=== PATIENT | female | born 1955 | race Two or more races ===

== ENCOUNTER 2018-10-21 09:40 | Emergency (ER) | payer SELFPAY ==
[~2018-10-21] VITALS: Ht 157.5 cm; Wt 81.6 kg
[2018-10-21 09:59] VITALS: BP 156/65
== END 2018-10-21 10:43 | disposition home or self-care (01) ==
LOC: ER 09:42
DX: E11.65 Type 2 diabetes mellitus with hyperglycemia (principal); I10 Essential (primary) hypertension

== ENCOUNTER 2024-12-15 11:25 | Inpatient (IN) | payer OTHER ==
[~2024-12-15] VITALS: Ht 157.5 cm; Wt 82.9 kg
--- NOTE | 2024-12-15 12:09 | ED.PDOC ---
General HPI Comments 69 y/o F, with PMHx of HTN, DM, and HLD presents to the ED for CC of flank pain. Patient states, she has been experiencing left-sided flank pain that radiates to her suprapubic abdominal area x3days. At this time patient c/o 6/10 pain to her flank and pelvic areas. Patient denies fever, chills, dysuria, hematuria, frequency, urgency, or inability to void. No other symptoms or modifying factors are present at this time. Chief Complaint: Flank Pain Time Seen by MD: 12:00 Primary Care Provider: UNKNOWN Reviewed notes: Nurses Notes, Medications, Allergies Allergies: Coded Allergies: NO KNOWN ALLERGIES (Unverified , 12/15/24) Information Source: Patient Mode of Arrival: Ambulatory Severity: Moderate Inability to void: None Timing: Days Duration: Since onset Prehospital treatment: None Onset: Spontaneous Symptoms: None History of: None Location: (L)Flank Modifying factors: None associated signs and symptoms: Abdominal Pain, Flank Pain Past Medical History PAST MEDICAL HISTORY: DM, High Lipids, HTN Surgical History: Denies all surgeries HOSPICE NURSE History: Denies all HOSPICE NURSE Hx Family History Family History: Family hx of DM Social History Smoker: Non-Smoker Alcohol: Denies ETOH Use Drugs: Denies Drug Use Lives In: Home Constitutional: denies: chills, diaphoresis, fatigue, fever, malaise, sweats, weakness, others EENTM: denies: blurred vision, double vision, ear bleeding, ear discharge, ear drainage, ear pain, ear ringing, eye pain, eye redness, hearing loss, mouth pain, mouth swelling, nasal discharge, nose bleeding, nose congestion, nose pain, photophobia, tearing, throat pain, throat swelling, voice changes, others Respiratory: denies: cough, hemoptysis, orthopnea, SOB at rest, shortness of breath, SOB with excertion, stridor, wheezing, others Cardiovascular: denies: chest pain, dizzy spells, diaphoresis, Dyspnea on exertion, edema, irregular heart beat, left arm pain, lightheadedness, palpitations, PND, syncope, others Gastrointestinal: reports: abdominal pain; denies: abdomen distended, blood streaked bowels, constipated, diarrhea, dysphagia, difficulty swallowing, hematemesis, melena, nausea, poor appetite, poor fluid intake, rectal bleeding, rectal pain, vomiting, others Genitourinary: reports: flank pain; denies: abnormal vagina bleeding, burning, dyspareunia, dysuria, frequency, hematuria, incontinence, pain, , vagina discharge, urgency, others Neurological: denies: dizziness, fainting, headache, left sided numbness, left sided weakness, numbness, paresthesia, pre-existing deficit, right sided numbness, right sided weakness, seizure, speech problems, tingling, tremors, weakness, others Musculoskeletal: denies: back pain, gout, joint pain, joint swelling, muscle pain, muscle stiffness, neck pain, others Integumetry: denies: bruises, change in color, change in hair/nails, dryness, laceration, lesions, lumps, rash, wounds, others Allergic/Immunocompromised: denies: Difficulty Healing, Frequent Infections, Hives, Itching, others Hematologic/Lymphatic: denies: anemia, blood clots, easy bleeding, easy bruising, swollen glands, others Endocrine: denies: excessive hunger, excessive sweating, excessive thirst, excessive urination, flushing, intolerance to cold, intolerance to heat, unexplained weight gain, unexplained weight loss, others Psychiatric: denies: anxiety, bipolar disorder, depression, hopeless, panic disorder, schizophrenia, sleepless, suicidal, others All Other Systems: Reviewed and Negative Physical Exam General Appearance: Moderate Distress HEENT: Normal ENT Inspection, Pharynx Normal, TMs Normal Neck: Full Range of Motion, Non-Tender, Normal, Normal Inspection Respiratory: Chest Non-Tender, Lungs Clear, No Accessory Muscle Use, No Respiratory Distress, Normal Breath Sounds Cardiovascular: No Edema, No JVD, No Murmur, No Gallop, Normal Peripheral Pulses, Regular Rate/Rhythm Breast Exam: Deferred Gastrointestinal: LLQ, No Organomegaly, No Pulsatile Mass, Normal Bowel Sounds, Soft, Tenderness Genitalia: Deferred Pelvic: Deferred Rectal: Deferred Extremities: No calf tenderness, Normal capillary refill, Normal inspection, Normal range of motion, Non-tender, No pedal edema Musculoskeletal : Apperance: Normal Neurologic: Alert, transmissions systems operator II-XII nml as Tested, No Motor Deficits, Normal Affect, Normal Mood, No Sensory Deficits Cerebellar Function: Normal Reflexes: Normal Skin: Dry, Normal Color, Warm Lymphatic: No Adenopathy Was a procedure done? Was a procedure done?: No Differential Diagnosis Kidney stone (Female): Cholelithiasis, Pancreatitis, Pyelonephritis, Strain, Urolithiasis, Other (Diverticulitis) Urinary Problem (Female): Urinary retention, Urolithiasis, UTI X-Ray, Labs, Meds, VS Vital Signs Date Time Temp Pulse Resp B/P (MAP) Pulse Ox O2 Delivery O2 Flow Rate FiO2 12/15/24 11:27 98.2 73 16 133/73 97 98.2 Lab Test 12/15/24 12:59 12/15/24 12:49 Range/Units White Blood Count 7.0 4.4-10.8 10^3/uL Red Blood Count 4.27 4.0-5.20 10^6/uL Hemoglobin 13.0 12.2-16.2 g/dL Hematocrit 37.8 36.0-46.0 % Mean Corpuscular Volume 88.5 80.0-100.0 fL Mean Corpuscular Hemoglobin 30.4 28.0-32.0 pg Mean Corpuscular Hemoglobin Concent 34.4 32.0-36.0 g/dL Red Cell Distribution Width 13.1 11.8-14.3 % Platelet Count 231 140-450 10^3/uL Mean Platelet Volume 8.2 6.9-10.8 fL Neutrophils (%) (Auto) 59.1 37.0-80.0 % Lymphocytes (%) (Auto) 30.3 10.0-50.0 % Monocytes (%) (Auto) 8.1 0.0-12.0 % Eosinophils (%) (Auto) 2.1 0.0-7.0 % Basophils (%) (Auto) 0.4 0.0-2.0 % Neutrophils # (Auto) 4.2 1.6-8.6 10 ^3/uL Lymphocytes # (Auto) 2.1 0.4-5.4 10 ^3/uL Monocytes # (Auto) 0.6 0-1.3 10 ^3/uL Eosinophils # (Auto) 0.1 0-0.8 10 ^3/uL Basophils # (Auto) 0 0-0.2 10 ^3/uL Nucleated Red Blood Cells 0.1 % Sodium Level 145 136-145 mmol/L Potassium Level 4.2 3.5-5.1 mmol/L Chloride Level 109 H 98-107 mmol/L Carbon Dioxide Level 26 20-31 mmol/L Anion Gap 10 5-15 Blood Urea Nitrogen 16 9-23 mg/dL Creatinine 0.68 0.550-1.02 mg/dL Glomerular Filtration Rate Calc 94 >90 mL/min BUN/Creatinine Ratio 23.5 H 10.0-20.0 Serum Glucose 104 74-106 mg/dL Calcium Level 9.4 8.7-10.4 mg/dL Urine Color Light-yellow Yellow Urine Clarity Clear Clear Urine pH 5.0 5.0-9.0 Urine Specific [place] 1.023 1.001-1.035 Urine Protein Negative Negative Urine Ketones Negative Negative Urine Blood Negative Negative /uL Urine Nitrite Negative Negative Urine Bilirubin Negative Negative Urine Urobilinogen Normal Negative mg/dL Urine Leukocyte Esterase Negative Negative /uL Urine RBC 1 0 - 4 /hpf Urine Microscopic WBC 2 0-5 /HPF Urine Squamous Epithelial Cells Few <5 /hpf Urine Bacteria None seen None Seen /hpf Urine Mucus Few None Seen Urine Glucose 3+ H Normal mg/dL Current Medications Medications (Trade) Dose Ordered Sig/Gloria Route Start Time Stop Time Status Last Admin Ondansetron HCl (Zofran) 4 mg ONCE ONCE IV 12/15/24 12:00 12/15/24 12:01 DC 12/15/24 12:25 Sodium Chloride 1,000 ml @ 1,000 mls/hr Q1H ONCE IVB 12/15/24 12:00 12/15/24 12:59 DC 12/15/24 12:25 Ketorolac Tromethamine (Toradol Injection) 15 mg ONCE ONCE IV 12/15/24 12:00 12/15/24 12:01 DC 12/15/24 12:25 CT ABD PEL: IMPRESSION: 1. No hydronephrosis or nephroureterolithiasis. 2. Question low-grade diverticulitis of the distal sigmoid colon along the left pelvic sidewall. 3. Cholelithiasis. 4. Hepatomegaly and diffuse hepatic steatosis. IV Hep-Lock was established The patient was given Zofran 4 mg IV push The patient was given 1 L bolus of normal saline The patient was given ketorolac 15 mg IV push The urine test is negative for infection at this time The CBC and chemistry panel are within normal limits The patient is being admitted The patient is also given Flagyl 500 mg IV piggyback. We are working with a diagnosis of cholelithiasis as well as acute diverticulitis Images Reviewed?: Images reviewed and evaluated by me Time of 1ST Reevaluation: 12:30 Reevaluation 1ST: Unchanged Patient Education/Counseling: Diagnosis, Treatment, Prognosis Family Education/Counseling: No Family Present SEPSIS Sepsis Screen Date sepsis recognized/suspect: Dec 15, 2024 Time Sepsis recognized/suspect: 1126 Recent Procedure: No On Antibiotic Therapy: No Respiratory Rate >20: No Heart Rate >90: No Temp<36 C (96.8 F) or >38.3 C: No SBP <90 or MAP <65 mmHG: No New Acute Mental Status Change: No Is the patient on CPAP, BIPAP,: No Physician Orders Ct Ab Pel Wo Con-No Oral Or Iv (12/15/24 11:49) Heplock Iv (12/15/24 11:49) Vital Signs Date Time Temp Pulse Resp B/P (MAP) Pulse Ox O2 Delivery O2 Flow Rate FiO2 12/15/24 11:27 98.2 73 16 133/73 97 98.2 Laboratory Tests Test 12/15/24 12:59 White Blood Count 7.0 10^3/uL (4.4-10.8) Medications Medications Dose Ordered Sig/Gloria Route Start Time Stop Time Status Last Admin Dose Admin Ketorolac Tromethamine 15 mg ONCE ONCE IV 12/15/24 12:00 12/15/24 12:01 DC 12/15/24 12:25 Ondansetron HCl 4 mg ONCE ONCE IV 12/15/24 12:00 12/15/24 12:01 DC 12/15/24 12:25 Sodium Chloride 1,000 ml @ 1,000 mls/hr Q1H ONCE IVB 12/15/24 12:00 12/15/24 12:59 DC 12/15/24 12:25 Departure 1 Departure Time of Disposition: 14:08 Impression: Primary Impression: Intractable abdominal pain Additional Impressions: Cholelithiasis Qualified Codes: K80.20 - Calculus of gallbladder without cholecystitis without obstruction Acute diverticulitis Disposition: ADMITTED INPATIENT Admit to: Med Surg Condition: Fair Critical Care Note Critical Care Time?: No Stability Stability form required: Yes Unstable for transfer: ED Physician Assesment (Clinical assesment) Heart Score Heart Score: Heart Score Response (Comments) Value History N/A 0 EKG N/A 0 Age N/A 0 Risk Factors N/A 0 Troponin N/A 0 Total 0 I personally scribed for BRAD NY MD ([email or web address]) on 12/15/24 at 12:09. Electronically submitted by Marilynn Isaac ([email or web address]). I personally scribed for BRAD NY MD ([email or web address]) on 12/15/24 at 13:06. Electronically submitted by Marilynn Isaac ([email or web address]). BRAD NY MD Dec 15, 2024 12:09
[2024-12-15] MEDS: SODIUM CHLORIDE 0.9% 1,000 ML IVB ONE (12:25)
[2024-12-15] MEDS: KETOROLAC TROMETH 30 MG/ML 1ML VIAL IV ONE (12:25)
[2024-12-15] MEDS: ONDANSETRON HCL 4 MG/2 ML VIAL IV ONE (12:25)
--- NOTE | 2024-12-15 12:49 | DVH ---
EXAM: CT CT AB PEL WO CON-NO ORAL OR IV INDICATION: left flank pain TECHNIQUE: Volumetric multidetector CT images of the abdomen and pelvis were obtained without contrast. All CT scans at this facility use dose modulation, iterative reconstruction, and/or weight based dosing when appropriate to reduce radiation dose to as low as reasonably achievable. COMPARISON: None FINDINGS: [LOWER CHEST]: The partially visualized lung bases are clear without a pleural effusion. trace small 2-3 mm oval-shaped micronodule in the right middle lobe and inferior lingula and correlate for benign sequelae of prior infection. The cardiac size is normal without pericardial effusion. [LIVER]: Question diffuse hepatic steatosis. Hepatomegaly. [GALLBLADDER AND BILIARY TREE]: Cholelithiasis. [SPLEEN]: Unremarkable. [PANCREAS]: Unremarkable. [ADRENAL GLANDS]: Unremarkable [KIDNEYS]: No hydronephrosis. No nephroureterolithiasis. No suspicious focal lesion. No definitive left distal ureteral stone allowing for limitation. [BLADDER]: Unremarkable for the degree distention. [REPRODUCTIVE ORGANS]: Hysterectomy. [BOWEL/MESENTERY]: Stomach is normal. No CT evidence of bowel obstruction. normal appendix. Mild sigmoid diverticulosis mild descending colonic diverticulosis. Trace possible anti mesenteric margin inflammatory stranding along the distal sigmoid colon along the left pelvic sidewall correlate for low-grade diverticulitis. [ASCITES]: Absent [LYMPHADENOPATHY]: No pathologically enlarged lymph nodes by CT size criteria [VASCULATURE]: No aneurysmal dilatation. [ABDOMINAL WALL]: Unremarkable. [MUSCULOSKELETAL]: No acute fracture or aggressive focal osseous lesion. Multifocal degenerative change of the visualized spine. IMPRESSION: 1. No hydronephrosis or nephroureterolithiasis. 2. Question low-grade diverticulitis of the distal sigmoid colon along the left pelvic sidewall. 3. Cholelithiasis. 4. Hepatomegaly and diffuse hepatic steatosis.
[2024-12-15 13:12] LABS: Hematocrit 37.8 % (36.0-46.0); Hemoglobin 13.0 g/dL (12.2-16.2); Mean Corpuscular Hemoglobin 30.4 pg (28.0-32.0); Mean Corpuscular Volume 88.5 fL (80.0-100.0); Nucleated Red Blood Cells % 0.1 %
[2024-12-15 13:18] LABS: Potassium 4.2 mmol/L (3.5-5.1); Sodium 145 mmol/L (136-145)
[2024-12-15 13:19] LABS: Anion Gap 10 (5-15); Carbon Dioxide 26 mmol/L (20-31)
[2024-12-15 13:20] LABS: Calcium 9.4 mg/dL (8.7-10.4); Chloride 109 mmol/L (98-107)
[2024-12-15 13:24] LABS: BUN/Creatinine Ratio 23.5 (10.0-20.0); Blood Urea Nitrogen 16 mg/dL (9-23); Glucose 104 mg/dL (74-106)
[2024-12-15 13:41] LABS: Urine Protein, UAD Negative (Negative)
[2024-12-15] MEDS ORDERED: LISI20TA56 PO (15:00)
[2024-12-15] MEDS ORDERED: ATEN25TA PO (15:00)
[2024-12-15] MEDS ORDERED: DEXTROSE (50%) 50ML SYRG IV PRN (15:00)
[2024-12-15] MEDS ORDERED: ACETAMINOPHEN 325 MG TAB PO PRN (15:00)
[2024-12-15] MEDS ORDERED: ONDANSETRON HCL 4 MG/2 ML VIAL IV PRN (15:00)
[2024-12-15] MEDS ORDERED: HYDR25TA5 PO (15:00)
[2024-12-15] MEDS ORDERED: ATOR40TA52 PO (15:00)
--- NOTE | 2024-12-15 15:01 | DVHHP2 ---
History of Present Illness Reason for Visit: Flank pain History of Present Illness Estephanie Knox is a 69-year-old female with past medical history of hypertension, diabetes, , and hyperlipidemia who presents to the ED with left flank pain that started 3 days ago, reports that it is a 6/10 "pain" and constant in nature. Patient's daughter Chelita at the bedside. Patient reports that she drank some vitamin water with no relief. She reports that the pain just came about initially started on Thursday then went away and now restarted. Patient denies any chest pain, shortness of breath, fever, chills, lightheadedness, weakness dizziness, nausea, vomiting, diarrhea, urinary symptoms, recent travels, recent ingestion of spoiled food, recent trauma or injury, or recent sick contacts. Cardiovascular: HTN, hyperipidemia Endocrine: Diabetes Past Surgical History: Family History: Hypertension, Other (Mom with hypertension and migraines.) Smoke: No ALCOHOL: none Drugs: None Lives: with Family Domestic Violence: Neg Review of Systems Gastrointestinal: Other (Left flank pain radiating to the abdomen) Allergies: Coded Allergies: NO KNOWN ALLERGIES (Unverified , 12/15/24) Exam Vital Signs Vital Signs Date Time Temp Pulse Resp B/P (MAP) Pulse Ox O2 Delivery O2 Flow Rate FiO2 12/15/24 11:27 98.2 73 16 133/73 97 98.2 General Appearance: Alert, Oriented X3, Cooperative, No acute distress HEENT: Atraumatic, PERRLA, EOMI, Mucous membr. moist/pink Respiratory: Clear to auscultation, Normal air movement Cardiovascular: Regular rate, Normal S1, Normal S2, No murmurs Abdominal: Normal bowel sounds, Soft Extremities: No clubbing, No cyanosis, No edema, Normal pulses Skin: No significant lesion Neuro: Normal gait, Normal speech, Strength at 5/5 X4 ext, Normal tone, Sensation intact Psych/Mental Status: Mental status NL, Mood NL Labs/Xrays Labs Test 12/15/24 12:59 12/15/24 12:49 Range/Units White Blood Count 7.0 4.4-10.8 10^3/uL Red Blood Count 4.27 4.0-5.20 10^6/uL Hemoglobin 13.0 12.2-16.2 g/dL Hematocrit 37.8 36.0-46.0 % Mean Corpuscular Volume 88.5 80.0-100.0 fL Mean Corpuscular Hemoglobin 30.4 28.0-32.0 pg Mean Corpuscular Hemoglobin Concent 34.4 32.0-36.0 g/dL Red Cell Distribution Width 13.1 11.8-14.3 % Platelet Count 231 140-450 10^3/uL Mean Platelet Volume 8.2 6.9-10.8 fL Neutrophils (%) (Auto) 59.1 37.0-80.0 % Lymphocytes (%) (Auto) 30.3 10.0-50.0 % Monocytes (%) (Auto) 8.1 0.0-12.0 % Eosinophils (%) (Auto) 2.1 0.0-7.0 % Basophils (%) (Auto) 0.4 0.0-2.0 % Neutrophils # (Auto) 4.2 1.6-8.6 10 ^3/uL Lymphocytes # (Auto) 2.1 0.4-5.4 10 ^3/uL Monocytes # (Auto) 0.6 0-1.3 10 ^3/uL Eosinophils # (Auto) 0.1 0-0.8 10 ^3/uL Basophils # (Auto) 0 0-0.2 10 ^3/uL Nucleated Red Blood Cells 0.1 % Sodium Level 145 136-145 mmol/L Potassium Level 4.2 3.5-5.1 mmol/L Chloride Level 109 H 98-107 mmol/L Carbon Dioxide Level 26 20-31 mmol/L Anion Gap 10 5-15 Blood Urea Nitrogen 16 9-23 mg/dL Creatinine 0.68 0.550-1.02 mg/dL Glomerular Filtration Rate Calc 94 >90 mL/min BUN/Creatinine Ratio 23.5 H 10.0-20.0 Serum Glucose 104 74-106 mg/dL Calcium Level 9.4 8.7-10.4 mg/dL Urine Color Light-yellow Yellow Urine Clarity Clear Clear Urine pH 5.0 5.0-9.0 Urine Specific [place] 1.023 1.001-1.035 Urine Protein Negative Negative Urine Ketones Negative Negative Urine Blood Negative Negative /uL Urine Nitrite Negative Negative Urine Bilirubin Negative Negative Urine Urobilinogen Normal Negative mg/dL Urine Leukocyte Esterase Negative Negative /uL Urine RBC 1 0 - 4 /hpf Urine Microscopic WBC 2 0-5 /HPF Urine Squamous Epithelial Cells Few <5 /hpf Urine Bacteria None seen None Seen /hpf Urine Mucus Few None Seen Urine Glucose 3+ H Normal mg/dL EXAM: CT CT AB PEL WO CON-NO ORAL OR IV INDICATION: left flank pain TECHNIQUE: Volumetric multidetector CT images of the abdomen and pelvis were obtained without contrast. All CT scans at this facility use dose modulation, iterative reconstruction, and/or weight based dosing when appropriate to reduce radiation dose to as low as reasonably achievable. COMPARISON: None FINDINGS: [LOWER CHEST]: The partially visualized lung bases are clear without a pleural effusion. trace small 2-3 mm oval-shaped micronodule in the right middle lobe and inferior lingula and correlate for benign sequelae of prior infection. The cardiac size is normal without pericardial effusion. [LIVER]: Question diffuse hepatic steatosis. Hepatomegaly. [GALLBLADDER AND BILIARY TREE]: Cholelithiasis. [SPLEEN]: Unremarkable. [PANCREAS]: Unremarkable. [ADRENAL GLANDS]: Unremarkable [KIDNEYS]: No hydronephrosis. No nephroureterolithiasis. No suspicious focal lesion. No definitive left distal ureteral stone allowing for limitation. [BLADDER]: Unremarkable for the degree distention. [REPRODUCTIVE ORGANS]: Hysterectomy. [BOWEL/MESENTERY]: Stomach is normal. No CT evidence of bowel obstruction. normal appendix. Mild sigmoid diverticulosis mild descending colonic diverticulosis. Trace possible anti mesenteric margin inflammatory stranding along the distal sigmoid colon along the left pelvic sidewall correlate for low- grade diverticulitis. [ASCITES]: Absent [LYMPHADENOPATHY]: No pathologically enlarged lymph nodes by CT size criteria [VASCULATURE]: No aneurysmal dilatation. [ABDOMINAL WALL]: Unremarkable. [MUSCULOSKELETAL]: No acute fracture or aggressive focal osseous lesion. Multifocal degenerative change of the visualized spine. IMPRESSION: 1. No hydronephrosis or nephroureterolithiasis. 2. Question low-grade diverticulitis of the distal sigmoid colon along the left pelvic sidewall. 3. Cholelithiasis. 4. Hepatomegaly and diffuse hepatic steatosis. SEPSIS Sepsis Screen Date sepsis recognized/suspect: Dec 15, 2024 Time Sepsis recognized/suspect: 1127 Recent Procedure: No On Antibiotic Therapy: No Respiratory Rate >20: No Heart Rate >90: No Temp<36 C (96.8 F) or >38.3 C: No SBP <90 or MAP <65 mmHG: No New Acute Mental Status Change: No Is the patient on CPAP, BIPAP,: No Physician Orders Ct Ab Pel Wo Con-No Oral Or Iv (12/15/24 11:49) Heplock Iv (12/15/24 11:49) Metronidazole 500mg/100ml (Flagyl 500mg/ (12/15/24 14:15) Vital Signs Date Time Temp Pulse Resp B/P (MAP) Pulse Ox O2 Delivery O2 Flow Rate FiO2 12/15/24 11:27 98.2 73 16 133/73 97 98.2 Laboratory Tests Test 12/15/24 12:59 White Blood Count 7.0 10^3/uL (4.4-10.8) Medications Medications Dose Ordered Sig/Gloria Route Start Time Stop Time Status Last Admin Dose Admin Ketorolac Tromethamine 15 mg ONCE ONCE IV 12/15/24 12:00 12/15/24 12:01 DC 12/15/24 12:25 15 MG Ondansetron HCl 4 mg ONCE ONCE IV 12/15/24 12:00 12/15/24 12:01 DC 12/15/24 12:25 4 MG Sodium Chloride 1,000 ml @ 1,000 mls/hr Q1H ONCE IVB 12/15/24 12:00 12/15/24 12:59 DC 12/15/24 12:25 1,000 MLS/HR Assessment/Plan Assessment/Plan Assessment Intractable left flank pain radiating to the abdomen ?low-grade diverticulitis of the distal sigmoid colon along the left pelvic sidewall Cholelithiasis Hepatomegaly diffuse hepatic steatosis History of hypertension History of diabetes History of hyperlipidemia History of Plan Admit to med surge Antiemetics Pain management CT abdomen and pelvis UA IV antibiotics-Flagyl Hemoglobin A1c ISS and Accu-Cheks Diet Home medications reconciled DVT prophylaxis-SCDs PUD prophylaxis-PPIs Discussed plan of care with patient, patient's daughter, and nurse [id number] Preventive counseling healthy eating habits, physical activity, and regular checkups Plan discussed with: Patient, Daughter Date of Service: Dec 15, 2024 Billing Provider: CHERISE CHU Common Visit Codes: 66699-[id number] INP/OBS CARE (HIGH) Secondary Visit Codes: 21150-[id number] COUNSELING IND CHERISE CHU Dec 15, 2024 15:01
[2024-12-15 16:47] VITALS: PULSE 65; RESP 16; O2SAT 98
[2024-12-15] MEDS: InsuLIN REG 1unit/0.01ml Soln (100units/ml) SC SCH (17:00)
[2024-12-15] MEDS: ACCU-CHEK COMFORT CURVE STRIP VI SCH (17:13)
[2024-12-15] MEDS ORDERED: METF-370 PO (17:47)
[2024-12-15 17:53] VITALS: BP 139/75; PULSE 65; RESP 16; TEMP 99.3; O2SAT 98
[2024-12-15 20:00] VITALS: PULSE 58; RESP 18; O2SAT 98
[2024-12-15 21:00] VITALS: BP 136/75; PULSE 54; RESP 18; TEMP 97.8; O2SAT 95
[2024-12-15] MEDS: ATORVASTATIN 20 MG TAB PO SCH (22:00)
[2024-12-15] MEDS: HYDROcodone-ACET 5/325MG TAB PO PRN (23:03)
[2024-12-16 05:00] VITALS: BP 107/66; PULSE 59; RESP 18; TEMP 98.3; O2SAT 98
[2024-12-16 05:56] LABS: Hematocrit 36.4 % (36.0-46.0); Hemoglobin 12.5 g/dL (12.2-16.2); Mean Corpuscular Hemoglobin 30.3 pg (28.0-32.0); Mean Corpuscular Volume 87.9 fL (80.0-100.0); Nucleated Red Blood Cells % 0.1 %
[2024-12-16 06:13] LABS: Albumin 3.8 g/dL (3.2-4.8); Alkaline Phosphatase 77 U/L (46-116); Anion Gap 7 (5-15); BUN/Creatinine Ratio 26.1 (10.0-20.0); Bilirubin, Total 0.5 mg/dL (0.2-1.0); Blood Urea Nitrogen 18 mg/dL (9-23); Calcium 9.5 mg/dL (8.7-10.4); Carbon Dioxide 27 mmol/L (20-31); Potassium 3.7 mmol/L (3.5-5.1); Sodium 142 mmol/L (136-145); Total Protein 6.1 g/dL (5.7-8.2)
[2024-12-16 06:27] LABS: Alanine Aminotransferase 46 U/L (7-40); Chloride 108 mmol/L (98-107); Glucose 146 mg/dL (74-106)
[2024-12-16 07:50] VITALS: PULSE 60; RESP 18; O2SAT 99
[2024-12-16 09:00] VITALS: BP 130/58; PULSE 60; RESP 18; TEMP 97.8; O2SAT 99
[2024-12-16] MEDS: hydroCHLOROthiazide 25 MG TAB PO SCH (09:46)
[2024-12-16] MEDS: ATENOLOL 25 MG TAB PO SCH (09:46)
[2024-12-16] MEDS: LISINOPRIL 20 MG TAB PO SCH (09:47)
[2024-12-16] MEDS ORDERED: METR-344 PO (09:55)
[2024-12-16] MEDS ORDERED: CIPR-173 PO (09:55)
--- NOTE | 2024-12-16 09:59 | DVHDS2 ---
Discharge Summary Date of Admission Dec 15, 2024 at 14:57 Date of Discharge: Dec 16, 2024 Labs/Diagnostic Data: Laboratory Results Test 12/16/24 07:59 12/16/24 05:26 12/15/24 12:59 12/15/24 12:49 POC Glucose 177 mg/dl (70-106) White Blood Count 6.9 10^3/uL (4.4-10.8) Red Blood Count 4.14 10^6/uL (4.0-5.20) Hemoglobin 12.5 g/dL (12.2-16.2) Hematocrit 36.4 % (36.0-46.0) Mean Corpuscular Volume 87.9 fL (80.0-100.0) Mean Corpuscular Hemoglobin 30.3 pg (28.0-32.0) Mean Corpuscular Hemoglobin Concent 34.5 g/dL (32.0-36.0) Red Cell Distribution Width 12.9 % (11.8-14.3) Platelet Count 214 10^3/uL (140-450) Mean Platelet Volume 8.2 fL (6.9-10.8) Neutrophils (%) (Auto) 47.0 % (37.0-80.0) Lymphocytes (%) (Auto) 42.7 % (10.0-50.0) Monocytes (%) (Auto) 7.6 % (0.0-12.0) Eosinophils (%) (Auto) 2.2 % (0.0-7.0) Basophils (%) (Auto) 0.5 % (0.0-2.0) Neutrophils # (Auto) 3.2 10 ^3/uL (1.6-8.6) Lymphocytes # (Auto) 2.9 10 ^3/uL (0.4-5.4) Monocytes # (Auto) 0.5 10 ^3/uL (0-1.3) Eosinophils # (Auto) 0.1 10 ^3/uL (0-0.8) Basophils # (Auto) 0 10 ^3/uL (0-0.2) Nucleated Red Blood Cells 0.1 % Sodium Level 142 mmol/L (136-145) Potassium Level 3.7 mmol/L (3.5-5.1) Chloride Level 108 mmol/L (98-107) Carbon Dioxide Level 27 mmol/L (20-31) Anion Gap 7 (5-15) Blood Urea Nitrogen 18 mg/dL (9-23) Creatinine 0.69 mg/dL (0.550-1.02) Glomerular Filtration Rate Calc 93 mL/min (>90) BUN/Creatinine Ratio 26.1 (10.0-20.0) Serum Glucose 146 mg/dL (74-106) Calcium Level 9.5 mg/dL (8.7-10.4) Total Bilirubin 0.5 mg/dL (0.2-1.0) Aspartate Amino Transferase (AST) 15 U/L (13-40) Alanine Aminotransferase (ALT) 46 U/L (7-40) Alkaline Phosphatase 77 U/L (46-116) Total Protein 6.1 g/dL (5.7-8.2) Albumin 3.8 g/dL (3.2-4.8) Hemoglobin A1c 8.3 % A1C (<5.7) Urine Color Light-yellow (Yellow) Urine Clarity Clear (Clear) Urine pH 5.0 (5.0-9.0) Urine Specific [place] 1.023 (1.001-1.035) Urine Protein Negative (Negative) Urine Ketones Negative (Negative) Urine Blood Negative /uL (Negative) Urine Nitrite Negative (Negative) Urine Bilirubin Negative (Negative) Urine Urobilinogen Normal mg/dL (Negative) Urine Leukocyte Esterase Negative /uL (Negative) Urine RBC 1 /hpf (0 - 4) Urine Microscopic WBC 2 /HPF (0-5) Urine Squamous Epithelial Cells Few /hpf (<5) Urine Bacteria None seen /hpf (None Seen) Urine Mucus Few (None Seen) Urine Glucose 3+ mg/dL (Normal) Other Laboratory Tests 12/16/24 05:26 Brief Hx & Hospital Course: Final diagnoses: Acute diverticulitis Cholelithiasis Hepatomegaly diffuse hepatic steatosis HTN DM2 Mixed hyperlipidemia History of 69 year old female was admitted for LLQ abd pain CT showed mild diverticulitis She is feeling better No N/V/D DC home on Cipro and Flagyl x 10 days Condition at Discharge: Stable Final Diagnosis/Problems List Acute diverticulitis Discharge Disposition: Home SNF Discharge Will this Physician continue t: No Discharge Instruct/Medications Diet: Consistent carbohydrate, Cardiac 2g Na,low cholest Activity: No Restrictions, As Tolerated Follow Up/Referral: PCP SKIP Medications: Cipro 500 mg bid x 10 days Flagyl 500 mg tid x 10 days Scheduled Atenolol (Atenolol), 1 TAB PO DAILY, (Reported) Atorvastatin Calcium (Atorvastatin Calcium), 1 TAB PO DAILY, (Reported) Ciprofloxacin Hcl (Cipro), 1 TAB PO BID Hctz (Hydrochlorothiazide), 1 TAB PO DAILY, (Reported) Lisinopril (Lisinopril), 1 TAB PO DAILY, (Reported) Metformin Hydrochloride (Metformin Hcl), 1,000 MG PO BID, (Reported) Metronidazole (Flagyl), 1 TAB PO TID Discharge Statement: "Patient was advised to return to the ER or call 911 if any headaches, dizziness, shortness of breath, chest pain, abdominal pain, bleeding, fevers, or worsening of medical condition. Patient was counseled about treatment plan, medications, possible side effects, patientverbalized understanding. All questions were answered to the best of my ability. This discharge took greater then 30 minutes in planning, reviewing documentation, counseling the patient, and discussing with other team members." ASSESSMENT ASSESSMENT Assessment Acute diverticulitis Date of Service: Dec 16, 2024 Billing Provider: JENNY MUÑOZ MD Common Visit Codes: NOT BILLABLE JENNY MUÑOZ MD Dec 16, 2024 09:59
[2024-12-16 10:42] LABS: Hepatitis B Surface Antigen Negative (Negative)
[2024-12-16 11:06] LABS: Hepatitis C Antibody Negative (Negative)
[2024-12-16 12:08] VITALS: BP 130/58; PULSE 55; RESP 18; TEMP 36.6; O2SAT 96
[2024-12-16 13:00] VITALS: BP 128/70; PULSE 55; RESP 18; TEMP 98.3; O2SAT 96
== END 2024-12-16 12:53 | disposition home or self-care (01) | DRG 392 ==
LOC: ER 11:25 → OVERFLOW 14:57 → EAST 16:31
PROVIDERS: ADMIT Internal Medicine Geriatric Medicine; ATTEND Internal Medicine Geriatric Medicine
DX: K57.32 Diverticulitis of large intestine without perforation or abscess without bleeding (principal); R16.0 Hepatomegaly, not elsewhere classified; K76.0 Fatty (change of) liver, not elsewhere classified; E11.9 Type 2 diabetes mellitus without complications; I10 Essential (primary) hypertension; K80.20 Calculus of gallbladder without cholecystitis without obstruction; E78.2 Mixed hyperlipidemia; Z83.3 Family history of diabetes mellitus; Z82.49 Family history of ischemic heart disease and other diseases of the circulatory system; Z79.899 Other long term (current) drug therapy
CPT/HCPCS: 36415; 74176; 80048; 80053; 81001; 82962; 83036; 85025; 86803; 87340; 96361; 96374; 96375; G0378; J1815; J1885; J2405; J3490

== ENCOUNTER 2024-12-24 16:02 | Inpatient (IN) | payer OTHER ==
[~2024-12-24] VITALS: Ht 157.5 cm; Wt 81.0 kg
[~2024-12-24 16:02] MED LIST: ATEN25TA PO; ATOR40TA52 PO; CIPR-173 PO; HYDR25TA5 PO; LISI20TA56 PO; METF-370 PO; METR-344 PO
[2024-12-24 16:42] LABS: Hematocrit 41.5 % (36.0-46.0); Hemoglobin 14.4 g/dL (12.2-16.2); Mean Corpuscular Hemoglobin 30.4 pg (28.0-32.0); Mean Corpuscular Volume 87.7 fL (80.0-100.0); Nucleated Red Blood Cells % 0.1 %
[2024-12-24 16:55] LABS: Albumin 4.4 g/dL (3.2-4.8); Alkaline Phosphatase 89 U/L (46-116); Anion Gap 12 (5-15); BUN/Creatinine Ratio 22.0 (10.0-20.0); Blood Urea Nitrogen 18 mg/dL (9-23); Carbon Dioxide 28 mmol/L (20-31); Chloride 103 mmol/L (98-107); Lipase 35 U/L (12-53); Potassium 4.1 mmol/L (3.5-5.1); Sodium 143 mmol/L (136-145); Total Protein 6.9 g/dL (5.7-8.2)
[2024-12-24 16:56] LABS: Bilirubin, Total 0.3 mg/dL (0.2-1.0)
[2024-12-24 17:00] LABS: Alanine Aminotransferase 84 U/L (7-40); Calcium 11.1 mg/dL (8.7-10.4); Glucose 112 mg/dL (74-106)
--- NOTE | 2024-12-24 17:46 | ED.PDOC ---
History of Present Illness HPI Comments 69-year-old female who is Georgian-speaking presents to the ER with daughter who translates and reports on the patient having prior medical history of diabetes, high lipids, hypertension in the chief complaint of abdominal pain. Patient reports on having left lower quadrant pain which radiates to the lumbar region of the back and came to the ER last week with similar symptoms and were diagnosed with diverticulitis and sent home with Cipro and Flagy. Daughter notes that the medication is not working and the patient still has pain. Denies any other symptoms at this time. Denies chills, fever, N/V/D, SOB, CP. No other associated symptoms, modifiers, recent injuries or sick contacts present at this time. Chief Complaint: Abdominal Pain Time Seen by MD: 17:10 Primary Care Provider: UNKNOWN Reviewed Notes: Nurses Notes, Medications, Allergies Allergies: Coded Allergies: NO KNOWN ALLERGIES (Unverified , 12/15/24) Home Meds Active Scripts Metronidazole (Flagyl) 500 Mg Tab, 1 TAB PO TID, #30 TAB Prov:JENNY MUÑOZ MD 12/16/24 Ciprofloxacin Hcl (Cipro) 500 Mg Tab, 1 TAB PO BID, #20 TAB Prov:JENNY MUÑOZ MD 12/16/24 Reported Medications Metformin Hydrochloride (Metformin Hcl) 500 Mg Tab, 1000 MG PO BID, MG 12/15/24 Atorvastatin Calcium (ATORVASTATIN CALCIUM) 40 Mg Tab, 1 TAB PO DAILY 12/15/24 Hctz (Hydrochlorothiazide) 25 Mg Tab, 1 TAB PO DAILY 12/15/24 Lisinopril (Lisinopril) 20 Mg Tab, 1 TAB PO DAILY 12/15/24 Atenolol (Atenolol) 25 Mg Tab, 1 TAB PO DAILY 12/15/24 Information Source: Patient, Relative (Child) Mode of Arrival: Ambulatory Severity: Moderate Timing: Days Duration: Since onset, Days Prehospital treatment: None Past Medical History PAST MEDICAL HISTORY: DM, High Lipids, HTN Surgical History: Denies all surgeries 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 Hx Family History Family History: Reviewed,noncontributory to illness, Unknown Social History Smoker: Non-Smoker Alcohol: Denies ETOH Use Drugs: Denies Drug Use Lives In: Home Constitutional: denies: chills, diaphoresis, fatigue, fever, malaise, sweats, weakness, others EENTM: denies: blurred vision, double vision, ear bleeding, ear discharge, ear drainage, ear pain, ear ringing, eye pain, eye redness, hearing loss, mouth pain, mouth swelling, nasal discharge, nose bleeding, nose congestion, nose pain, photophobia, tearing, throat pain, throat swelling, voice changes, others Respiratory: denies: cough, hemoptysis, orthopnea, SOB at rest, shortness of breath, SOB with excertion, stridor, wheezing, others Cardiovascular: denies: chest pain, dizzy spells, diaphoresis, Dyspnea on exertion, edema, irregular heart beat, left arm pain, lightheadedness, palpitations, PND, syncope, others Gastrointestinal: reports: abdominal pain; denies: abdomen distended, blood streaked bowels, constipated, diarrhea, dysphagia, difficulty swallowing, hematemesis, melena, nausea, poor appetite, poor fluid intake, rectal bleeding, rectal pain, vomiting, others Genitourinary: denies: abnormal vagina bleeding, burning, dyspareunia, dysuria, flank pain, frequency, hematuria, incontinence, pain, , vagina discharge, urgency, others Neurological: denies: dizziness, fainting, headache, left sided numbness, left sided weakness, numbness, paresthesia, pre-existing deficit, right sided numbness, right sided weakness, seizure, speech problems, tingling, tremors, weakness, others Musculoskeletal: reports: back pain; denies: gout, joint pain, joint swelling, muscle pain, muscle stiffness, neck pain, others Integumetry: denies: bruises, change in color, change in hair/nails, dryness, laceration, lesions, lumps, rash, wounds, others Allergic/Immunocompromised: denies: Difficulty Healing, Frequent Infections, Hives, Itching, others Hematologic/Lymphatic: denies: anemia, blood clots, easy bleeding, easy bruising, swollen glands, others Endocrine: denies: excessive hunger, excessive sweating, excessive thirst, excessive urination, flushing, intolerance to cold, intolerance to heat, unexplained weight gain, unexplained weight loss, others Psychiatric: denies: anxiety, bipolar disorder, depression, hopeless, panic disorder, schizophrenia, sleepless, suicidal, others All Other Systems: Reviewed and Negative Physical Exam Exam Comments Left lower quadrant pain which radiates to the lumbar region General Appearance: No Apparent Distress, Normal HEENT: Normal ENT Inspection, Pharynx Normal, TMs Normal Neck: Full Range of Motion, Non-Tender, Normal, Normal Inspection Respiratory: Chest Non-Tender, Lungs Clear, No Accessory Muscle Use, No Respiratory Distress, Normal Breath Sounds Cardiovascular: No Edema, No JVD, No Murmur, No Gallop, Normal Peripheral Pulses, Regular Rate/Rhythm Breast Exam: Deferred Gastrointestinal: No Organomegaly, Non Tender, No Pulsatile Mass, Normal Bowel Sounds, Soft Genitalia: Deferred Pelvic: Deferred Rectal: Deferred Extremities: No calf tenderness, Normal capillary refill, Normal inspection, Normal range of motion, Non-tender, No pedal edema Musculoskeletal : Apperance: Normal Neurologic: Alert, 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 Was a procedure done?: No Differential Dx Considerations may include: Ureteral colic, acute appendicitis, viral syndrome, electrolyte abnormality, diverticulitis X-Ray, Labs, Meds, VS Vital Signs Date Time Temp Pulse Resp B/P (MAP) Pulse Ox O2 Delivery O2 Flow Rate FiO2 12/24/24 16:05 97.9 71 20 133/54 99 97.9 Lab Test 12/24/24 16:25 Range/Units White Blood Count 8.4 4.4-10.8 10^3/uL Red Blood Count 4.73 4.0-5.20 10^6/uL Hemoglobin 14.4 12.2-16.2 g/dL Hematocrit 41.5 36.0-46.0 % Mean Corpuscular Volume 87.7 80.0-100.0 fL Mean Corpuscular Hemoglobin 30.4 28.0-32.0 pg Mean Corpuscular Hemoglobin Concent 34.7 32.0-36.0 g/dL Red Cell Distribution Width 13.2 11.8-14.3 % Platelet Count 257 140-450 10^3/uL Mean Platelet Volume 8.5 6.9-10.8 fL Neutrophils (%) (Auto) 53.1 37.0-80.0 % Lymphocytes (%) (Auto) 36.4 10.0-50.0 % Monocytes (%) (Auto) 7.1 0.0-12.0 % Eosinophils (%) (Auto) 2.8 0.0-7.0 % Basophils (%) (Auto) 0.6 0.0-2.0 % Neutrophils # (Auto) 4.5 1.6-8.6 10 ^3/uL Lymphocytes # (Auto) 3.1 0.4-5.4 10 ^3/uL Monocytes # (Auto) 0.6 0-1.3 10 ^3/uL Eosinophils # (Auto) 0.2 0-0.8 10 ^3/uL Basophils # (Auto) 0.1 0-0.2 10 ^3/uL Nucleated Red Blood Cells 0.1 % Sodium Level 143 136-145 mmol/L Potassium Level 4.1 3.5-5.1 mmol/L Chloride Level 103 98-107 mmol/L Carbon Dioxide Level 28 20-31 mmol/L Anion Gap 12 5-15 Blood Urea Nitrogen 18 9-23 mg/dL Creatinine 0.82 0.550-1.02 mg/dL Glomerular Filtration Rate Calc 77 >90 mL/min BUN/Creatinine Ratio 22.0 H 10.0-20.0 Serum Glucose 112 H 74-106 mg/dL Calcium Level 11.1 H 8.7-10.4 mg/dL Total Bilirubin 0.3 0.2-1.0 mg/dL Aspartate Amino Transferase (AST) 23 13-40 U/L Alanine Aminotransferase (ALT) 84 H 7-40 U/L Alkaline Phosphatase 89 46-116 U/L Troponin I High Sensitivity < 3 L </=34 ng/L Total Protein 6.9 5.7-8.2 g/dL Albumin 4.4 3.2-4.8 g/dL Lipase 35 12-53 U/L Time of 1ST Reevaluation: 17:40 Reevaluation 1ST: Unchanged Patient Education/Counseling: Diagnosis, Treatment, Prognosis Family Education/Counseling: Diagnosis, Treatment, Prognosis SEPSIS Sepsis Screen Date sepsis recognized/suspect: Dec 24, 2024 Time Sepsis recognized/suspect: 1607 Recent Procedure: No On Antibiotic Therapy: No Respiratory Rate >20: No Heart Rate >90: No Temp<36 C (96.8 F) or >38.3 C: No SBP <90 or MAP <65 mmHG: No New Acute Mental Status Change: No Is the patient on CPAP, BIPAP,: No Physician Orders Urinalysis (12/24/24 16:11) Ct Ab Pel Wo Con-No Oral Or Iv (12/24/24 17:07) Vital Signs Date Time Temp Pulse Resp B/P (MAP) Pulse Ox O2 Delivery O2 Flow Rate FiO2 12/24/24 16:05 97.9 71 20 133/54 99 97.9 Laboratory Tests Test 12/24/24 16:25 White Blood Count 8.4 10^3/uL (4.4-10.8) Departure 1 Departure Time of Disposition: 18:17 (Patient presented with abdominal pain that was concerning for possible appendicits, gastritis, cholecystitis, colitis, gastroenteritis, sbo, or orther possible surgical emergency. Data: 1. I ordered and reviewed the result of at least 3 labs including a CBC, BMP, and Urinalysis. 2. I independently interpreted the following tests: CT Abdomen and Pelvis is concerning for benign abdomen.Risk:This patient has a high risk of morbidity due to further diagnostic testing or treatment and may suffer from an acute abdominal process disorder. Workup reveals intractable abdominal pain and some pulmonary nodules. and patient should be admitted for further workup. and possible expert consultation. ) Impression: Primary Impression: Intractable abdominal pain Additional Impression: Nausea and vomiting Disposition: ADMITTED INPATIENT Admit to: Med Surg Condition: Guarded Critical Care Note Critical Care Time?: Yes Critical care comment: Intractable abdominal pain Authorized and Performed by: Delmis Weber MD Total critical care time: Approximately 37 minutes Due to a high probability of clinically significant, life threatening deteriora tion, the patient required my highest level of preparedness to intervene emergently and I personally spent this critical care time directly and personally managing the patient. This critical care time included obtaining a history; examining the patient; pulse oximetry; ordering and review of studies; arranging urgent treatment with development of a management plan; evaluation of patient's response to treatment; frequent reassessment; and, discussions with other providers. This critical care time was performed to assess and manage the high probability of imminent, life-threatening deterioration that could result in multi-organ failure. It was exclusive of separately billable procedures and treating other patients and teaching time. Please see my other sections and the rest of the note for further information on patient assessment and treatment. Stability Stability form required: No I personally scribed for DELMIS WEBER MD ([email or web address]) on 12/24/24 at 17:46. Electronically submitted by aWi Edwards ([email or web address]). DELMIS WEBER MD Dec 24, 2024 17:46
--- NOTE | 2024-12-24 17:55 | DVH ---
COMPUTERIZED TOMOGRAPHY ABDOMEN AND PELVIS WITHOUT CONTRAST REASON FOR EXAM: left flank pain COMPARISON: CT CT AB PEL WO CON-NO ORAL OR IV on DOS: 12/15/24 TECHNIQUE: Spiral scans were acquired from the diaphragm to the symphysis pubis without intravenous contrast administration. 2-D coronal and sagittal reformatted images were provided. Radiation optimization: All CT scans at this facility use at least one of these dose optimization techniques: Automated exposure control mA and/or kV adjustment per patient size (includes targeted exams where dose is matched to clinical indication) or iterative reconstruction. RADIATION DOSE: CTDI: 12 mGy DLP: 605 mGy-cm FINDINGS: Respiratory motion artifact degrades evaluation there are several nodules at the partially visualized lung bases, the largest of which measures 7 mm in the right middle lobe. There is no pleural effusion. There is no pericardial effusion. The spleen is not enlarged. The liver is normal in size and contour. Evaluation of the abdominal organs is suboptimal in the absence of intravenous contrast. There is a calcified gallstone in the gallbladder. Unenhanced appearance of the pancreas is unremarkable. The adrenal glands appear normal. The kidneys are similar in size. There is no hydronephrosis of either kidney. No renal, ureteral, or bladder calculus is identified. The urinary bladder is decompressed but appears grossly unremarkable. The uterus is absent. The left ovary is within normal limits. The right ovary is not definitely seen. There is no abdominal aortic aneurysm. No pathologic lymphadenopathy is identified by size criteria. No free fluid is identified in the abdomen or pelvis. There is sigmoid diverticulosis without definite evidence of diverticulitis. The colonic stool burden is moderate and predominantly involves the ascending and transverse colon. The appendix is normal. There is no Pathologic distention of the small bowel. No acute osseous abnormality is identified. IMPRESSION: No renal, ureteral, or bladder calculus. No hydronephrosis of either kidney. Normal appendix. Several nodules at the partially visualized lung bases, the largest of which measures 7 mm in the right middle lobe. The Fleischner society guidelines are listed below for Follow-up recommendation reference. Fleischner Society Guidelines for Incidental Pulmonary Nodules: SOLID NODULES Single low-risk: < 6 mm No follow up. 6-[address] at 6-12 months, then consider CT at 18-24 months. > [address] at 3 months, PET/CT or bx. Single high risk: < [address] at 12 months. 6-[address] at 6-12 months, then consider CT at 18-24 months. > [address] at 3 months, PET/CT or bx. Multiple low risk: < 6 mm No follow up. 6-[address] at 3-6 months, then consider CT at 18-24 months. > [address] at 3-6 months, then consider CT at 18-24 months. Multiple high risk: < [address] at 12 months. 6-[address] at 3-6 months, then CT at 18-24 months. > [address] at 3-6 months, then CT at 18-24 months. SUBSOLID NODULES Ground glass: < 6 mm No follow up. > [address] at 6-12 months, then CT every 2 years for 5 years. Part solid: < 6 mm No follow up. > [address] at 3-6 months. If stable with solid component <6mm, annual CT for 5 years. Multiple: < [address] at 3-6 months. If stable, consider CT at 2 and 4 years. > [address] at 3-6 months. Subsequent based on most suspicious nodule. Notes: Recommendations do not apply to cancer screening, patient with immunosuppression or known primary cancer. Reference: Radiology 2017; Jojohokanu et al; 000:[id number]
[2024-12-24 19:00] LABS: Urine Protein, UAD Negative (Negative)
[2024-12-24] MEDS: ONDANSETRON HCL 4 MG/2 ML VIAL IV ONE (19:38)
[2024-12-24] MEDS: SODIUM CHLORIDE 0.9% 1,000 ML IV ONE (19:38)
[2024-12-24] MEDS: MORPHINE SULFATE 4 MG/ML SYR/VIAL IV ONE (19:39)
[2024-12-24 22:06] VITALS: PULSE 61; RESP 20; O2SAT 96
[2024-12-24] MEDS ORDERED: ONDANSETRON HCL 4 MG/2 ML VIAL IV PRN (23:15)
[2024-12-24] MEDS ORDERED: ACETAMINOPHEN 325 MG TAB PO PRN (23:15)
[2024-12-24] MEDS ORDERED: DEXTROSE (50%) 50ML SYRG IV PRN (23:15)
[2024-12-24] MEDS ORDERED: DOCUSATE SOD 100 MG CAP PO PRN (23:15)
[2024-12-24] MEDS ORDERED: HYDROcodone-ACET 5/325MG TAB PO PRN (23:15)
--- NOTE | 2024-12-24 23:51 | DVHHP2 ---
History of Present Illness Reason for Visit: Acute abdominal pain History of Present Illness The patient is a 69-year-old female with past medical history of hyperlipidemia, diabetes mellitus, and hypertension who presented to [facility] ED with complaint of acute abdominal pain. Patient reports that she has been experiencing left lower quadrant abdominal pain, radiating to her lumbar region, back, associated nausea. Patient was recently discharged from this facility with similar symptoms, diagnosed with diverticulitis and was sent home with oral Cipro and Flagyl. However patient reports symptoms progressively get worse, unrelieved with medication regimen, getting worse that prompted this visit. Patient was seen and evaluated in the ED, laboratory data shows WBC 8.4, platelets 257, sodium 143, potassium 4.1, BUN 18, creatinine 0.82, glucose 112, calcium 11.1, AST 23, ALT 84, troponin < 3, lipase 35, blood pressure 136/76, heart rate 62, temperature 98.2 F, O2 saturation 96% on room air. Abdomen/pelvis CT revealing cerebral nodules at the partially visualized lung ba ses, the largest of which measures 7 mm in the right middle lobe; the Fleischner society guidelines listed below in the imaging reports. Please see medication orders section in the computer. On my assessment, patient denied chest pain, no headache, dizziness, diaphoresis, shortness of breath, no abdominal pain at this moment, nausea, vomiting, fever, no chills. Patient was admitted for further evaluation and medical management. Past Medical History DM, High Lipids, HTN Past Surgical History Denies all surgeries Family History Reviewed, noncontributory to the management of this case. Past Social History The patient lives at home, denies smoking, alcohol or illicit drugs abuse. Review of Systems Constitutional: Yes: Weakness; No: Fever, Chills, Sweats, Malaise, Other Eyes: No: Pain, Vision change, Conjunctivae inflammation, Eyelid inflammation, Other, Redness ENT: No: Ear pain, Ear discharge, Nose pain, Nose discharge, Nose congestion, Mouth pain, Mouth swelling, Throat pain, Throat swelling, Other Respiratory: No: Cough, Dry, Shortness of breath, SOB with excertion, Wheezing, Hemoptysis, Pleuritic Pain, Sputum, Wheezing, Other Cardiovascular: No: Chest Pain, Palpitations, Orthopnea, Paroxysmal Noc. Dyspnea, Edema, Lt Headedness, Other Gastrointestinal: Nausea, Abdominal Pain; No: Vomiting, Diarrhea, Constipation, Melena, Hematochezia, Other Genitourinary: No Dysuria, No Frequency, No Incontinence, No Hematuria, No Retention, No Other Musculoskeletal: back pain; No: other, neck pain, shoulder pain, arm pain, hand pain, leg pain, foot pain Skin: No: Rash, Lesions, Jaundice, Bruising, Other Neurological: No: Weakness, Numbness, Incoordination, Change in speech, Con fusion, Seizures, Other Allergies: Coded Allergies: NO KNOWN ALLERGIES (Unverified , 12/15/24) Medications Current Medications Medications Dose Ordered Sig/Gloria Route Start Time Stop Time Status Last Admin Dose Admin Lisinopril 20 mg DAILY PO 12/25/24 10:00 Atorvastatin Calcium 40 mg HS PO 12/25/24 22:00 Diagnostic Test (Pha) 1 strip Q6HR 12/25/24 00:00 Insulin Human Regular Q6HR SC 12/25/24 00:00 Dextrose 50 ml UD PRN IV 12/24/24 23:15 Sodium Chloride 10 ml Q8HR IV 12/25/24 06:00 Acetaminophen/ Hydrocodone Bitart 1 tab Q4HP PRN PO 12/24/24 23:15 Ondansetron HCl 4 mg Q4HP PRN IV 12/24/24 23:15 Docusate Sodium 100 mg BIDPRN PRN PO 12/24/24 23:15 Acetaminophen 650 mg Q6HP PRN PO 12/24/24 23:15 Exam Vital Signs Vital Signs Date Time Temp Pulse Resp B/P (MAP) Pulse Ox O2 Delivery O2 Flow Rate FiO2 12/24/24 22:06 61 20 136/76 12/24/24 22:06 98.2 96 98.2 General Appearance: Alert, Oriented X3, Cooperative, No acute distress HEENT: Atraumatic, PERRLA, EOMI, Mucous membr. moist/pink Respiratory: Normal air movement Cardiovascular: Regular rate, Normal S1, Normal S2, No murmurs Abdominal: Normal bowel sounds, Soft, No hepatospenomegaly, No masses, Other (Reports tenderness) Extremities: No clubbing, No cyanosis, No edema, Normal pulses, No tenderness/swelling Skin: No rashes, No breakdown, No significant lesion Neuro: Normal speech, Normal tone, Sensation intact, Cranial nerves 3-12 NL, Reflexes 2+, Other (Generalized weakness) Psych/Mental Status: Mental status NL, Mood NL Labs/Xrays Labs Test 12/24/24 17:00 12/24/24 16:25 Range/Units Urine Color Yellow Yellow Urine Clarity Clear Clear Urine pH 5.0 5.0-9.0 Urine Specific [place] 1.022 1.001-1.035 Urine Protein Negative Negative Urine Ketones 1+ H Negative Urine Blood Negative Negative /uL Urine Nitrite Negative Negative Urine Bilirubin Negative Negative Urine Urobilinogen Normal Negative mg/dL Urine Leukocyte Esterase Trace Negative /uL Urine RBC <1 0 - 4 /hpf Urine Microscopic WBC 1 0-5 /HPF Urine Squamous Epithelial Cells Few <5 /hpf Urine Bacteria None seen None Seen /hpf Urine Mucus Few None Seen Urine Glucose Normal Normal mg/dL White Blood Count 8.4 4.4-10.8 10^3/uL Red Blood Count 4.73 4.0-5.20 10^6/uL Hemoglobin 14.4 12.2-16.2 g/dL Hematocrit 41.5 36.0-46.0 % Mean Corpuscular Volume 87.7 80.0-100.0 fL Mean Corpuscular Hemoglobin 30.4 28.0-32.0 pg Mean Corpuscular Hemoglobin Concent 34.7 32.0-36.0 g/dL Red Cell Distribution Width 13.2 11.8-14.3 % Platelet Count 257 140-450 10^3/uL Mean Platelet Volume 8.5 6.9-10.8 fL Neutrophils (%) (Auto) 53.1 37.0-80.0 % Lymphocytes (%) (Auto) 36.4 10.0-50.0 % Monocytes (%) (Auto) 7.1 0.0-12.0 % Eosinophils (%) (Auto) 2.8 0.0-7.0 % Basophils (%) (Auto) 0.6 0.0-2.0 % Neutrophils # (Auto) 4.5 1.6-8.6 10 ^3/uL Lymphocytes # (Auto) 3.1 0.4-5.4 10 ^3/uL Monocytes # (Auto) 0.6 0-1.3 10 ^3/uL Eosinophils # (Auto) 0.2 0-0.8 10 ^3/uL Basophils # (Auto) 0.1 0-0.2 10 ^3/uL Nucleated Red Blood Cells 0.1 % Sodium Level 143 136-145 mmol/L Potassium Level 4.1 3.5-5.1 mmol/L Chloride Level 103 98-107 mmol/L Carbon Dioxide Level 28 20-31 mmol/L Anion Gap 12 5-15 Blood Urea Nitrogen 18 9-23 mg/dL Creatinine 0.82 0.550-1.02 mg/dL Glomerular Filtration Rate Calc 77 >90 mL/min BUN/Creatinine Ratio 22.0 H 10.0-20.0 Serum Glucose 112 H 74-106 mg/dL Calcium Level 11.1 H 8.7-10.4 mg/dL Total Bilirubin 0.3 0.2-1.0 mg/dL Aspartate Amino Transferase (AST) 23 13-40 U/L Alanine Aminotransferase (ALT) 84 H 7-40 U/L Alkaline Phosphatase 89 46-116 U/L Troponin I High Sensitivity < 3 L </=34 ng/L Total Protein 6.9 5.7-8.2 g/dL Albumin 4.4 3.2-4.8 g/dL Lipase 35 12-53 U/L PATIENT: SHARATH CRAWLEYCCT: [id number] UNIT: [id number] : 1955 LOC: ER ROOM / BED: / AGE / SEX: 69 / F ADM STATUS: REG ER SERVICE 06 ORDERING PHYSICIAN: DELMIS ALLISON MD PROCEDURE(s): ABPL - CT AB PEL WO CON-NO ORAL OR IV REASON: left flank pain ORDER NUMBER(s): [id number], ACCESSION NUMBER(s): [id number] COMPUTERIZED TOMOGRAPHY ABDOMEN AND PELVIS WITHOUT CONTRAST REASON FOR EXAM: left flank pain COMPARISON: CT CT AB PEL WO CON-NO ORAL OR IV on DOS: 12/15/24 TECHNIQUE: Spiral scans were acquired from the diaphragm to the symphysis pubis without intravenous contrast administration. 2-D coronal and sagittal reformatted images were provided. Radiation optimization: All CT scans at this facility use at least one of these dose optimization techniques: Automated exposure control mA and/or kV adjustment per patient size (includes targeted exams where dose is matched to clinical indication) or iterative reconstruction. RADIATION DOSE: CTDI: 12 mGy DLP: 605 mGy-cm FINDINGS: Respiratory motion artifact degrades evaluation there are several nodules at the partially visualized lung bases, the largest of which measures 7 mm in the right middle lobe. There is no pleural effusion. There is no pericardial effusion. The spleen is not enlarged. The liver is normal in size and contour. Evaluation of the abdominal organs is suboptimal in the absence of intravenous contrast. There is a calcified gallstone in the gallbladder. Unenhanced appearance of the pancreas is unremarkable. The adrenal glands appear normal. The kidneys are similar in size. There is no hydronephrosis of either kidney. No renal, ureteral, or bladder calculus is identified. The urinary bladder is decompressed but appears grossly unremarkable. The uterus is absent. The left ovary is within normal limits. The right ovary is not definitely seen. There is no abdominal aortic aneurysm. No pathologic lymphadenopathy is identified by size criteria. No free fluid is identified in the abdomen or pelvis. There is sigmoid diverticulosis without definite evidence of diverticulitis. The colonic stool burden is moderate and predominantly involves the ascending and transverse colon. The appendix is normal. There is no Pathologic distention of the small bowel. No acute osseous abnormality is identified. IMPRESSION: No renal, ureteral, or bladder calculus. No hydronephrosis of either kidney. Normal appendix. Several nodules at the partially visualized lung bases, the largest of which measures 7 mm in the right middle lobe. The Fleischner society guidelines are listed below for Follow-up recommendation reference. Fleischner Society Guidelines for Incidental Pulmonary Nodules: SOLID NODULES Single low-risk: < 6 mm No follow up. 6-[address] at 6-12 months, then consider CT at 18-24 months. > [address] at 3 months, PET/CT or bx. Single high risk: < [address] at 12 months. 6-[address] at 6-12 months, then consider CT at 18-24 months. > [address] at 3 months, PET/CT or bx. Multiple low risk: < 6 mm No follow up. 6-[address] at 3-6 months, then consider CT at 18-24 months. > [address] at 3-6 months, then consider CT at 18-24 months. Multiple high risk: < [address] at 12 months. 6-[address] at 3-6 months, then CT at 18-24 months. > [address] at 3-6 months, then CT at 18-24 months. SUBSOLID NODULES Ground glass: < 6 mm No follow up. > [address] at 6-12 months, then CT every 2 years for 5 years. Part solid: < 6 mm No follow up. > [address] at 3-6 months. If stable with solid component <6mm, annual CT for 5 years. Multiple: < [address] at 3-6 months. If stable, consider CT at 2 and 4 years. > [address] at 3-6 months. Subsequent based on most suspicious nodule. Notes: Recommendations do not apply to cancer screening, patient with immunosuppression or known primary cancer. Reference: Radiology 2017; Alsyia et al; 000:1-16 SEPSIS Sepsis Screen Date sepsis recognized/suspect: Dec 24, 2024 Time Sepsis recognized/suspect: 1930 Recent Procedure: No On Antibiotic Therapy: No Respiratory Rate >20: No Heart Rate >90: No Temp<36 C (96.8 F) or >38.3 C: No SBP <90 or MAP <65 mmHG: No New Acute Mental Status Change: No Is the patient on CPAP, BIPAP,: No Physician Orders Ct Ab Pel Wo Con-No Oral Or Iv (12/24/24 17:07) Lisinopril Tablet (Zestril Tablet) (12/25/24 10:00) Atorvastatin (Lipitor) (12/25/24 22:00) Glucose Blood (Accu-Chek Comfort Curve T (12/25/24 00:00) Insulin R (Human) (Insulin R) (12/25/24 00:00) Dextrose 50% Syringe (12/24/24 23:15) Allergies (12/24/24 23:09) Code Status (12/24/24 23:09) Sodium Chloride Lock (Saline Lock Ns) (12/25/24 06:00) Oxygen Per Hour (12/24/24 23:09) Hydrocodone-Acet 5/325mg Tab (Anton 5/32 (12/24/24 23:15) Ondansetron Hcl (Zofran) (12/24/24 23:15) Docusate Sodium Capsule (Colace Capsule) (12/24/24 23:15) Complete Blood Count (12/25/24 04:00) Comprehensive Metabolic Panel (12/25/24 04:00) Condition: Serious (12/24/24 23:09) Acetaminophen Tablet (Tylenol Tablet) (12/24/24 23:15) Clear Liq Diet (12/25/24 Breakfast) Bedrest With Bathroom Privileg (12/24/24 23:09) Maintain Bed Rest (12/24/24 23:09) Sequential Compression Device (12/24/24 ) Admit (12/24/24 23:49) Nitroglycerin Sublingual (Ntrostat Subli (12/25/24 00:00) Morphine Sulfate Injection (12/25/24 00:00) Stat Ekg For Chest Pain (12/24/24 23:49) Notify Md Of Changes From Base (12/24/24 23:49) Igniter Capper For 24 Hours (12/24/24 23:49) Emergency Dysrhythmia Protocol (12/24/24 23:49) Rhythm Strips Once Every Shift (12/24/24 23:49) Oxygen By Nasal Cannula (12/24/24 23:49) Vital Signs Date Time Temp Pulse Resp B/P (MAP) Pulse Ox O2 Delivery O2 Flow Rate FiO2 12/24/24 22:06 61 20 136/76 12/24/24 22:06 61 20 12/24/24 22:06 98.2 61 20 136/76 (96) 96 98.2 12/24/24 19:39 70 16 128/76 12/24/24 19:30 97.8 70 16 128/76 (93) 97 97.8 12/24/24 16:05 97.9 71 20 133/54 99 97.9 Laboratory Tests Test 12/24/24 16:25 White Blood Count 8.4 10^3/uL (4.4-10.8) Medications Medications Dose Ordered Sig/Gloria Route Start Time Stop Time Status Last Admin Dose Admin Morphine Sulfate 4 mg ONCE ONCE IV 12/24/24 18:15 12/24/24 18:20 DC 12/24/24 19:39 4 MG Ondansetron HCl 4 mg ONCE ONCE IV 12/24/24 18:15 12/24/24 18:20 DC 12/24/24 19:38 4 MG Sodium Chloride 1,000 ml @ 1,000 mls/hr Q1H ONCE IV 12/24/24 18:15 12/24/24 19:14 DC 12/24/24 19:38 1,000 MLS/HR Assessment/Plan Assessment/Plan Acute abdominal pain Hypercalcemia Elevated ALT measurement Intractable nausea and vomiting Plan 1. Admit to med surge unit 2. Breathing treatment 3. Pain control management 4. Management of fluids and electrolytes 5. Consultation for GI/hospitalist 6. Diagnostic tests abdomen/pelvis CT 7. DVT prophylaxis-on SCDs 8. Repeat labs CBC, CMP in a.m. 9. Continue with current medical management 10. Treatment plan discussed with patient and RN. Patient verbalized understanding. Plan discussed with: Patient, Other (RN) My Orders Orders - FRANKY KNIGHT DNP Procedure Category Date Status Time Lisinopril Tablet PHA 12/25/24 In Process (Zestril Tablet) 10:00 Atorvastatin (Lipitor) PHA 12/25/24 In Process 22:00 Glucose Blood PHA 12/25/24 In Process (Accu-Chek Comfort 00:00 Insulin R (Human) PHA 12/25/24 In Process (Insulin R) 00:00 Dextrose 50% Syringe PHA 12/24/24 In Process 23:15 Allergies JOSE 12/24/24 In Process 23:09 Code Status CODE 12/24/24 Transmitted 23:09 Sodium Chloride Lock PHA 12/25/24 In Process (Saline Lock Ns) 06:00 Oxygen Per Hour RT 12/24/24 Transmitted 23:09 Hydrocodone-Acet PHA 12/24/24 In Process 5/325mg Tab (Anton 23:15 Ondansetron Hcl PHA 12/24/24 In Process (Zofran) 23:15 Docusate Sodium PHA 12/24/24 In Process Capsule (Colace 23:15 Complete Blood Count LAB 12/25/24 Verified 04:00 Comprehensive LAB 12/25/24 Verified Metabolic Panel 04:00 Condition: Serious JOSE 12/24/24 In Process 23:09 Acetaminophen Tablet PHA 12/24/24 In Process (Tylenol Tablet) 23:15 Clear Liq Diet DIET 12/25/24 Transmitted Breakfast Bedrest With Bathroom JOSE 12/24/24 In Process Privileg 23:09 Maintain Bed Rest JOSE 12/24/24 In Process 23:09 Sequential JOSE 12/24/24 In Process Compression Device Admit ADMIT 12/24/24 Verified 23:49 Nitroglycerin PHA 12/25/24 Verified Sublingual (Ntrostat 00:00 Morphine Sulfate PHA 12/25/24 Verified Injection 00:00 Stat Ekg For Chest [facility] 12/24/24 Verified Pain 23:49 Notify Md Of Changes [facility] 12/24/24 Verified From Base 23:49 Igniter Capper For [facility] 12/24/24 Verified 24 Hours 23:49 Emergency Dysrhythmia [facility] 12/24/24 Verified Protocol 23:49 Rhythm Strips Once [facility] 12/24/24 Verified Every Shift 23:49 Oxygen By Nasal RT 12/24/24 Verified Cannula 23:49 Problem List: (1) Acute abdominal pain (2) Hypercalcemia (3) Elevated ALT measurement (4) Intractable nausea and vomiting Date of Service: Dec 24, 2024 Billing Provider: FRANKY KNIGHT DNP Common Visit Codes: 58202-HILYVXD INP/OBS CARE (HIGH) FRANKY KNIGHT DNP Dec 24, 2024 23:51
[2024-12-25] VITALS (9 sets, daily range): BP systolic 113–156; BP diastolic 50–71; PULSE 59–73; RESP 18–21; TEMP 97.6–98.1; O2SAT 94–99
[2024-12-25] MEDS ORDERED: NITROGLYCERIN 0.4 MG SL TAB SL PRN
[2024-12-25] MEDS: InsuLIN REG 1unit/0.01ml Soln (100units/ml) SC SCH
[2024-12-25] MEDS ORDERED: MORPHINE SULFATE INJ 2 MG/ml SYRG IV PRN
[2024-12-25] MEDS: ACCU-CHEK COMFORT CURVE STRIP VI SCH (00:19)
[2024-12-25] MEDS: SODIUM CHLOR 0.9% PF (SALINE LOCK) 10ML VIAL/SYR IV SCH (06:07)
[2024-12-25 06:44] LABS: Hematocrit 38.3 % (36.0-46.0); Hemoglobin 13.1 g/dL (12.2-16.2); Mean Corpuscular Hemoglobin 30.2 pg (28.0-32.0); Mean Corpuscular Volume 88.1 fL (80.0-100.0); Nucleated Red Blood Cells % 0.1 %
[2024-12-25 07:03] LABS: Albumin 4.0 g/dL (3.2-4.8); Alkaline Phosphatase 81 U/L (46-116); Anion Gap 9 (5-15); BUN/Creatinine Ratio 21.7 (10.0-20.0); Bilirubin, Total 0.4 mg/dL (0.2-1.0); Blood Urea Nitrogen 15 mg/dL (9-23); Calcium 10.1 mg/dL (8.7-10.4); Carbon Dioxide 28 mmol/L (20-31); Chloride 104 mmol/L (98-107); Potassium 4.2 mmol/L (3.5-5.1); Sodium 141 mmol/L (136-145); Total Protein 6.4 g/dL (5.7-8.2)
[2024-12-25 07:13] LABS: Alanine Aminotransferase 67 U/L (7-40); Glucose 172 mg/dL (74-106)
[2024-12-25] MEDS: LISINOPRIL 20 MG TAB PO SCH (09:27)
[2024-12-25] MEDS: ATORVASTATIN 20 MG TAB PO SCH (22:10)
[2024-12-26] VITALS (9 sets, daily range): BP systolic 129–164; BP diastolic 64–83; PULSE 60–70; RESP 16–18; TEMP 97.7–98.2; O2SAT 95–99
--- NOTE | 2024-12-26 15:39 | DVHCONRES ---
Date Seen: Dec 26, 2024 Resident Creating Document: ISAIAS MELTON History of Present Illness The patient is a 69-year-old female with past medical history of hyperlipidemia, diabetes mellitus, and hypertension who presented to [facility] ED with complaint of acute abdominal pain. Patient reports that she has been experiencing left lower quadrant abdominal pain, radiating to her lumbar region, back, associated nausea. Patient was recently discharged from this facility with similar symptoms, diagnosed with diverticulitis and was sent home with oral Cip ro and Flagyl. However patient reports symptoms progressively get worse, unrelieved with medication regimen, getting worse that prompted this visit. Patient denies nausea, vomiting, diarrhea. Reports that she had 2 episodes of bowel movement yesterday. Reports left lower abdominal pain radiating to the back. Patient had EGD and colonoscopy 1 year back. Patient seen and examined. Left lower quadrant tenderness. Family History: Diabetes mellitus G8 MOTHER G8 FATHER Hypertension G8 MOTHER G8 FATHER Allergies: Coded Allergies: NO KNOWN ALLERGIES (Unverified , 12/15/24) Home Meds Active Scripts Metronidazole (Flagyl) 500 Mg Tab, 1 TAB PO TID, #30 TAB Prov:JENNY MUÑOZ MD 12/16/24 Ciprofloxacin Hcl (Cipro) 500 Mg Tab, 1 TAB PO BID, #20 TAB Prov:JENNY MUÑOZ MD 12/16/24 Reported Medications Metformin Hydrochloride (Metformin Hcl) 500 Mg Tab, 1000 MG PO BID, MG 12/15/24 Atorvastatin Calcium (ATORVASTATIN CALCIUM) 40 Mg Tab, 1 TAB PO DAILY 12/15/24 Hctz (Hydrochlorothiazide) 25 Mg Tab, 1 TAB PO DAILY 12/15/24 Lisinopril (Lisinopril) 20 Mg Tab, 1 TAB PO DAILY 12/15/24 Atenolol (Atenolol) 25 Mg Tab, 1 TAB PO DAILY 12/15/24 Current Medications Current Medications Medications (Trade) Dose Ordered Sig/Gloria Route PRN Reason Start Time Stop Time Status Last Admin Atorvastatin Calcium (Lipitor) 40 mg HS PO 12/25/24 22:00 12/25/24 22:10 Vital Signs Vital Signs Date Time Temp Pulse Resp B/P (MAP) Pulse Ox O2 Delivery O2 Flow Rate FiO2 12/26/24 15:19 98.0 70 17 164/80 (108) 97 98.0 12/26/24 08:00 Room Air* 0 21 Physical Exam Patient lying in bed, in no acute distress General: Obese, afebrile, palor, mucosae are moist Cardiovascular: Regular S1 and S2. No murmurs, gallops or rubs. No JVD elevation. No pedal edema Respiratory: Normal B/L air entry on room air. Clear lung sounds on auscultation Abdomen: Soft, left lower quadrant tender, nondistended, normoactive bowel sounds, no rebound tenderness, no organomegaly, no masses Genitourinary: Deferred MSK/skin: Mobilizes 4 limbs. Skin is dry and warm Neurological: No motor, no sensitive deficits, normal speech. Pupils are isocoric and reactive. Psych/Mental Status: A/Ox3 Labs/Diagnostic Data Labs Test 12/26/24 12:04 12/25/24 05:58 12/24/24 17:00 12/24/24 16:25 Range/Units POC Glucose 203 H 70-106 mg/dl White Blood Count 7.3 4.4-10.8 10^3/uL Red Blood Count 4.34 4.0-5.20 10^6/uL Hemoglobin 13.1 12.2-16.2 g/dL Hematocrit 38.3 36.0-46.0 % Mean Corpuscular Volume 88.1 80.0-100.0 fL Mean Corpuscular Hemoglobin 30.2 28.0-32.0 pg Mean Corpuscular Hemoglobin Concent 34.3 32.0-36.0 g/dL Red Cell Distribution Width 13.2 11.8-14.3 % Platelet Count 229 140-450 10^3/uL Mean Platelet Volume 8.5 6.9-10.8 fL Neutrophils (%) (Auto) 53.6 37.0-80.0 % Lymphocytes (%) (Auto) 35.2 10.0-50.0 % Monocytes (%) (Auto) 8.5 0.0-12.0 % Eosinophils (%) (Auto) 2.3 0.0-7.0 % Basophils (%) (Auto) 0.4 0.0-2.0 % Neutrophils # (Auto) 3.9 1.6-8.6 10 ^3/uL Lymphocytes # (Auto) 2.6 0.4-5.4 10 ^3/uL Monocytes # (Auto) 0.6 0-1.3 10 ^3/uL Eosinophils # (Auto) 0.2 0-0.8 10 ^3/uL Basophils # (Auto) 0 0-0.2 10 ^3/uL Nucleated Red Blood Cells 0.1 % Sodium Level 141 136-145 mmol/L Potassium Level 4.2 3.5-5.1 mmol/L Chloride Level 104 98-107 mmol/L Carbon Dioxide Level 28 20-31 mmol/L Anion Gap 9 5-15 Blood Urea Nitrogen 15 9-23 mg/dL Creatinine 0.69 0.550-1.02 mg/dL Glomerular Filtration Rate Calc 93 >90 mL/min BUN/Creatinine Ratio 21.7 H 10.0-20.0 Serum Glucose 172 H 74-106 mg/dL Calcium Level 10.1 8.7-10.4 mg/dL Total Bilirubin 0.4 0.2-1.0 mg/dL Aspartate Amino Transferase (AST) 17 13-40 U/L Alanine Aminotransferase (ALT) 67 H 7-40 U/L Alkaline Phosphatase 81 46-116 U/L Total Protein 6.4 5.7-8.2 g/dL Albumin 4.0 3.2-4.8 g/dL Urine Color Yellow Yellow Urine Clarity Clear Clear Urine pH 5.0 5.0-9.0 Urine Specific [place] 1.022 1.001-1.035 Urine Protein Negative Negative Urine Ketones 1+ H Negative Urine Blood Negative Negative /uL Urine Nitrite Negative Negative Urine Bilirubin Negative Negative Urine Urobilinogen Normal Negative mg/dL Urine Leukocyte Esterase Trace Negative /uL Urine RBC <1 0 - 4 /hpf Urine Microscopic WBC 1 0-5 /HPF Urine Squamous Epithelial Cells Few <5 /hpf Urine Bacteria None seen None Seen /hpf Urine Mucus Few None Seen Urine Glucose Normal Normal mg/dL Troponin I High Sensitivity < 3 L </=34 ng/L Lipase 35 12-53 U/L Microbiology Date/Time Source Procedure Growth Status 12/25/24 02:14 Nose MRSA Screen - Final Complete Assessment Abdominal pain likely due to moderate stool burden Slow transit constipation Hypercalcemia Calcified gallstones Plan/Recommendation Given that the patient had EGD and colonoscopy 1 year back which were unremarkable, we recommend conservative management. Stool softeners at this time. MiraLax 1 g p.o. daily. Outpatient follow up with GI advised. We will continue to follow up Plan discussed with patient in which all questions have been answered Case discussed with Dr. Rucker Plan discussed with: Patient ISAIAS MELTON RESIDENT Dec 26, 2024 15:39
[2024-12-26] MEDS: POLYETHYLENE GLYCOL 17 GM PWDR PO ONE (18:00)
[2024-12-27 01:00] VITALS: BP 123/71; PULSE 61; RESP 16; TEMP 97.7; O2SAT 97
[2024-12-27 05:00] VITALS: BP 149/80; PULSE 60; RESP 19; TEMP 97.8; O2SAT 97
[2024-12-27 08:00] VITALS: PULSE 63
[2024-12-27 09:00] VITALS: BP 125/65; PULSE 65; RESP 19; TEMP 97.8; O2SAT 97
[2024-12-27 12:26] LABS: Albumin 4.5 g/dL (3.2-4.8); Alkaline Phosphatase 76 U/L (46-116); Anion Gap 9 (5-15); BUN/Creatinine Ratio 13.7 (10.0-20.0); Blood Urea Nitrogen 10 mg/dL (9-23); Calcium 10.2 mg/dL (8.7-10.4); Carbon Dioxide 28 mmol/L (20-31); Chloride 105 mmol/L (98-107); Potassium 4.3 mmol/L (3.5-5.1); Sodium 142 mmol/L (136-145); Total Protein 7.1 g/dL (5.7-8.2)
[2024-12-27 12:27] LABS: Alanine Aminotransferase 80 U/L (7-40); Bilirubin, Total 0.7 mg/dL (0.2-1.0); Glucose 210 mg/dL (74-106)
[2024-12-27 13:00] VITALS: BP 131/78; PULSE 60; RESP 18; TEMP 98.1; O2SAT 97
--- NOTE | 2024-12-27 16:23 | DVHPN2 ---
Progress Note Date Seen: Dec 27, 2024 Resident Creating Document: ISAIAS MELTON RESIDENT Medical Necessity Reason Pt with a Central, PICC or Fol: No Subjective Review of Systems The patient is a 69-year-old female with past medical history of hyperlipidemia, diabetes mellitus, and hypertension who presented to [facility] ED with complaint of acute abdominal pain. Patient reports that she has been experiencing left lower quadrant abdominal pain, radiating to her lumbar region, back, associated nausea. Patient was recently discharged from this facility with similar symptoms, diagnosed with diverticulitis and was sent home with oral Cipro and Flagyl. However patient reports symptoms progressively get worse, unrelieved with medication regimen, getting worse that prompted this visit. Patient denies nausea, vomiting, diarrhea. Reports that she had 2 episodes of bowel movement yesterday. Reports left lower abdominal pain radiating to the back. Patient had EGD and colonoscopy 1 year back. 12/26-Patient seen and examined. Left lower quadrant tenderness. 12/27 patient seen and examined, no no symptoms reported. Objective vital signs Vital Sign Date Time Temp Pulse Resp B/P (MAP) Pulse Ox O2 Delivery O2 Flow Rate FiO2 12/27/24 13:00 98.1 60 18 131/78 (95) 97 98.1 12/27/24 08:00 Room Air* 0 21 medications Current Medications Medications Dose Ordered Sig/Gloria Route Start Time Stop Time Status Last Admin Dose Admin Lisinopril 20 mg DAILY PO 12/25/24 10:00 12/27/24 09:15 20 MG Atorvastatin Calcium 40 mg HS PO 12/25/24 22:00 12/26/24 21:05 40 MG Diagnostic Test (Pha) 1 strip Q6HR 12/25/24 00:00 12/27/24 11:39 1 STRIP Insulin Human Regular Q6HR SC 12/25/24 00:00 12/27/24 11:48 4 UNITS Dextrose 50 ml UD PRN IV 12/24/24 23:15 Sodium Chloride 10 ml Q8HR IV 12/25/24 06:00 12/27/24 05:40 10 ML Acetaminophen/ Hydrocodone Bitart 1 tab Q4HP PRN PO 12/24/24 23:15 Ondansetron HCl 4 mg Q4HP PRN IV 12/24/24 23:15 Docusate Sodium 100 mg BIDPRN PRN PO 12/24/24 23:15 Acetaminophen 650 mg Q6HP PRN PO 12/24/24 23:15 Nitroglycerin 0.4 mg Q5MINP PRN SL 12/25/24 00:00 Morphine Sulfate 2 mg Q30M PRN IV 12/25/24 00:00 Examination Patient lying in bed, in no acute distress General: Obese, afebrile, palor, mucosae are moist Cardiovascular: Regular S1 and S2. No murmurs, gallops or rubs. No JVD elevation. No pedal edema Respiratory: Normal B/L air entry on room air. Clear lung sounds on auscultation Abdomen: Soft, resolving left lower quadrant tenderness, nondistended, normoactive bowel sounds, no rebound tenderness, no organomegaly, no masses Genitourinary: Deferred MSK/skin: Mobilizes 4 limbs. Skin is dry and warm Neurological: No motor, no sensitive deficits, normal speech. Pupils are isocoric and reactive. Psych/Mental Status: A/Ox3 laboratory and microbiology Laboratory Tests 12/27/24 11:11 12/25/24 05:58 Test 12/27/24 11:11 Range/Units Serum Glucose 210 H 74-106 mg/dL Microbiology Date/Time Source Procedure Growth Status 12/25/24 02:14 Nose MRSA Screen - Final Complete Labs and/or images reviewed: Labs reviewed by me, Image(s) reviewed by me Problem List/Assessment/Plan Problem List/Assessment/Plan Abdominal pain likely due to moderate stool burden Slow transit constipation Hypercalcemia Calcified gallstones Plan/Recommendation Given that the patient had EGD and colonoscopy 1 year back which were unremarkable, we recommend conservative management. Stool softeners at this time. MiraLax 1 g p.o. daily. Patient is stable to be discharged from GI standpoint. Outpatient follow up with GI advised. Thank you for consulting GI Plan discussed with patient in which all questions have been answered Case discussed with Dr. Rucker Plan discussed with: Patient ISAIAS MELTON RESIDENT Dec 27, 2024 16:23
[2024-12-27] MEDS ORDERED: POLYETHYLENE GLYCOL 17 GM PWDR PO ONE (16:30)
--- NOTE | 2024-12-27 23:52 | DVHDS2 ---
Discharge Summary Date of Admission Dec 24, 2024 at 23:49 Date of Discharge: Dec 27, 2024 Labs/Diagnostic Data: Laboratory Results Test 12/27/24 11:36 12/27/24 11:11 12/25/24 05:58 12/24/24 17:00 POC Glucose 226 mg/dl (70-106) Sodium Level 142 mmol/L (136-145) Potassium Level 4.3 mmol/L (3.5-5.1) Chloride Level 105 mmol/L (98-107) Carbon Dioxide Level 28 mmol/L (20-31) Anion Gap 9 (5-15) Blood Urea Nitrogen 10 mg/dL (9-23) Creatinine 0.73 mg/dL (0.550-1.02) Glomerular Filtration Rate Calc 88 mL/min (>90) BUN/Creatinine Ratio 13.7 (10.0-20.0) Serum Glucose 210 mg/dL (74-106) Calcium Level 10.2 mg/dL (8.7-10.4) Total Bilirubin 0.7 mg/dL (0.2-1.0) Aspartate Amino Transferase (AST) 26 U/L (13-40) Alanine Aminotransferase (ALT) 80 U/L (7-40) Alkaline Phosphatase 76 U/L (46-116) Total Protein 7.1 g/dL (5.7-8.2) Albumin 4.5 g/dL (3.2-4.8) White Blood Count 7.3 10^3/uL (4.4-10.8) Red Blood Count 4.34 10^6/uL (4.0-5.20) Hemoglobin 13.1 g/dL (12.2-16.2) Hematocrit 38.3 % (36.0-46.0) Mean Corpuscular Volume 88.1 fL (80.0-100.0) Mean Corpuscular Hemoglobin 30.2 pg (28.0-32.0) Mean Corpuscular Hemoglobin Concent 34.3 g/dL (32.0-36.0) Red Cell Distribution Width 13.2 % (11.8-14.3) Platelet Count 229 10^3/uL (140-450) Mean Platelet Volume 8.5 fL (6.9-10.8) Neutrophils (%) (Auto) 53.6 % (37.0-80.0) Lymphocytes (%) (Auto) 35.2 % (10.0-50.0) Monocytes (%) (Auto) 8.5 % (0.0-12.0) Eosinophils (%) (Auto) 2.3 % (0.0-7.0) Basophils (%) (Auto) 0.4 % (0.0-2.0) Neutrophils # (Auto) 3.9 10 ^3/uL (1.6-8.6) Lymphocytes # (Auto) 2.6 10 ^3/uL (0.4-5.4) Monocytes # (Auto) 0.6 10 ^3/uL (0-1.3) Eosinophils # (Auto) 0.2 10 ^3/uL (0-0.8) Basophils # (Auto) 0 10 ^3/uL (0-0.2) Nucleated Red Blood Cells 0.1 % Urine Color Yellow (Yellow) Urine Clarity Clear (Clear) Urine pH 5.0 (5.0-9.0) Urine Specific [place] 1.022 (1.001-1.035) Urine Protein Negative (Negative) Urine Ketones 1+ (Negative) Urine Blood Negative /uL (Negative) Urine Nitrite Negative (Negative) Urine Bilirubin Negative (Negative) Urine Urobilinogen Normal mg/dL (Negative) Urine Leukocyte Esterase Trace /uL (Negative) Urine RBC <1 /hpf (0 - 4) Urine Microscopic WBC 1 /HPF (0-5) Urine Squamous Epithelial Cells Few /hpf (<5) Urine Bacteria None seen /hpf (None Seen) Urine Mucus Few (None Seen) Urine Glucose Normal mg/dL (Normal) Test 12/24/24 16:25 Troponin I High Sensitivity < 3 ng/L (</=34) Lipase 35 U/L (12-53) Other Laboratory Tests 12/27/24 11:11 12/25/24 05:58 Brief Hx & Hospital Course: The patient is a 69-year-old female with past medical history of hyperlipidemia, diabetes mellitus, and hypertension who presented to [facility] ED with complaint of acute abdominal pain. Patient reports that she has been experiencing left lower quadrant abdominal pain, radiating to her lumbar region, back, associated nausea. Patient was recently discharged from this facility with similar symptoms, diagnosed with diverticulitis and was sent home with oral Cipro and Flagyl. However patient reports symptoms progressively get worse, unrelieved with medication regimen, getting worse that prompted this visit. Patient was seen and evaluated in the ED, laboratory data shows WBC 8.4, platelets 257, sodium 143, potassium 4.1, BUN 18, creatinine 0.82, glucose 112, calcium 11.1, AST 23, ALT 84, troponin < 3, lipase 35, blood pressure 136/76, heart rate 62, temperature 98.2 F, O2 saturation 96% on room air. Abdomen/pelvis CT revealing cerebral nodules at the partially visualized lung bases, the largest of which measures 7 mm in the right middle lobe; the Fleischner society guidelines listed below in the imaging reports. Please see medication orders section in the computer. On my assessment, patient denied chest pain, no headache, dizziness, diaphoresis, shortness of breath, no abdominal pain at this moment, nausea, vomiting, fever, no chills. Patient was admitted for further evaluation and medical management. Acute abdominal pain Hypercalcemia Elevated ALT measurement Intractable nausea and vomiting Abdominal pain likely due to moderate stool burden Slow transit constipation Hypercalcemia Calcified gallstones pt left AMA Condition at Discharge: Fair Final Diagnosis/Problems List see above Discharge Disposition: AMA Discharge Instruct/Medications Scheduled Atenolol (Atenolol), 1 TAB PO DAILY, (Reported) Atorvastatin Calcium (Atorvastatin Calcium), 1 TAB PO DAILY, (Reported) Ciprofloxacin Hcl (Cipro), 1 TAB PO BID Hctz (Hydrochlorothiazide), 1 TAB PO DAILY, (Reported) Lisinopril (Lisinopril), 1 TAB PO DAILY, (Reported) Metformin Hydrochloride (Metformin Hcl), 1,000 MG PO BID, (Reported) Metronidazole (Flagyl), 1 TAB PO TID Discharge Statement: "Patient was advised to return to the ER or call 911 if any headaches, dizziness, shortness of breath, chest pain, abdominal pain, bleeding, fevers, or worsening of medical condition. Patient was counseled about treatment plan, medications, possible side effects, patientverbalized understanding. All questions were answered to the best of my ability. This discharge took greater then 30 minutes in planning, reviewing documentation, counseling the patient, and discussing with other team members." ASSESSMENT ASSESSMENT Assessment Date of Service: Dec 27, 2024 Billing Provider: NIMCO AGUIRRE DO Common Visit Codes: [id number] DISCH DAY >30min NIMCO AGUIRRE DO Dec 27, 2024 23:52
--- NOTE | 2024-12-31 20:39 | DVHPN2 ---
Reviewed: Care Plan, H&P Changes from previous H/P or p: No Changes General: Per HPI Eyes: No Pain, No Vision change, No Conjunctivae inflammation, No Eyelid inflammation, No Other, No Redness ENT: No Ear pain, No Ear discharge, No Nose pain, No Nose discharge, No Nose congestion, No Mouth pain, No Mouth swelling, No Throat pain, No Throat swelling, No Other Cardiovascular: No Chest Pain, No Palpitations, No Orthopnea, No Paroxysmal Noc. Dyspnea, No Edema, No Lt Headedness, No Other Respiratory: No Cough, No Dry, No Shortness of breath, No SOB with excertion, No Wheezing, No Hemoptysis, No Pleuritic Pain, No Sputum, No Other Gastrointestinal: Nausea; No Vomiting; Abdominal Pain; No Diarrhea, No Constipation, No Melena, No Hematochezia, No Other Genitourinary: No Dysuria, No Frequency, No Incontinence, No Hematuria, No Retention, No Other Musculoskeletal: No other, No neck pain, No shoulder pain, No arm pain; back pain; No hand pain, No leg pain, No foot pain Skin: No Rash, No Lesions, No Jaundice, No Bruising, No Other Objective General Appearance: Alert, Oriented X3, Cooperative HEENT: Atraumatic Cardiovascular: Regular rate, Normal S1, Normal S2 Abdomen: Normal bowel sounds, Soft Laboratory Results Laboratory Tests 12/25/24 05:58 12/27/24 11:11 Urinalysis Test 12/24/24 17:00 Urine Color Yellow (Yellow) Urine Clarity Clear (Clear) Urine pH 5.0 (5.0-9.0) Urine Specific [place] 1.022 (1.001-1.035) Urine Protein Negative (Negative) Urine Ketones 1+ (Negative) H Urine Blood Negative /uL (Negative) Urine Nitrite Negative (Negative) Urine Bilirubin Negative (Negative) Urine Urobilinogen Normal mg/dL (Negative) Urine Leukocyte Esterase Trace /uL (Negative) Urine RBC <1 /hpf (0 - 4) Urine Microscopic WBC 1 /HPF (0-5) Urine Squamous Epithelial Cells Few /hpf (<5) Urine Bacteria None seen /hpf (None Seen) Urine Mucus Few (None Seen) Urine Glucose Normal mg/dL (Normal) Microbiology Microbiology Date/Time Source Procedure Growth Status 12/25/24 02:14 Nose MRSA Screen - Final Complete Labs and/or images reviewed: Labs reviewed by me, Image(s) reviewed by me Assessment/Plan Assessment/Plan Acute abdominal pain Hypercalcemia Elevated ALT measurement Intractable nausea and vomiting Abdominal pain likely due to moderate stool burden Slow transit constipation Hypercalcemia Calcified gallstones consult to GI pain control IV fluid Plan discussed with: Patient Date of Service: Dec 25, 2024 Billing Provider: NIMCO AGUIRRE DO Common Visit Codes: [id number] INP/OBS CARE(HIGH) NIMCO AGUIRRE DO Dec 31, 2024 20:39
--- NOTE | 2024-12-31 20:47 | DVHPN2 ---
Reviewed: Care Plan, H&P Changes from previous H/P or p: No Changes General: Per HPI Eyes: No Pain, No Vision change, No Conjunctivae inflammation, No Eyelid inflammation, No Other, No Redness ENT: No Ear pain, No Ear discharge, No Nose pain, No Nose discharge, No Nose congestion, No Mouth pain, No Mouth swelling, No Throat pain, No Throat swelling, No Other Cardiovascular: No Chest Pain, No Palpitations, No Orthopnea, No Paroxysmal Noc. Dyspnea, No Edema, No Lt Headedness, No Other Respiratory: No Cough, No Dry, No Shortness of breath, No SOB with excertion, No Wheezing, No Hemoptysis, No Pleuritic Pain, No Sputum, No Other Gastrointestinal: Nausea; No Vomiting; Abdominal Pain; No Diarrhea, No Constipation, No Melena, No Hematochezia, No Other Genitourinary: No Dysuria, No Frequency, No Incontinence, No Hematuria, No Retention, No Other Musculoskeletal: No other, No neck pain, No shoulder pain, No arm pain; back pain; No hand pain, No leg pain, No foot pain Skin: No Rash, No Lesions, No Jaundice, No Bruising, No Other Objective General Appearance: Alert, Oriented X3, Cooperative HEENT: Atraumatic Cardiovascular: Regular rate, Normal S1, Normal S2 Abdomen: Normal bowel sounds, Soft Laboratory Results Laboratory Tests 12/25/24 05:58 12/27/24 11:11 Urinalysis Test 12/24/24 17:00 Urine Color Yellow (Yellow) Urine Clarity Clear (Clear) Urine pH 5.0 (5.0-9.0) Urine Specific [place] 1.022 (1.001-1.035) Urine Protein Negative (Negative) Urine Ketones 1+ (Negative) H Urine Blood Negative /uL (Negative) Urine Nitrite Negative (Negative) Urine Bilirubin Negative (Negative) Urine Urobilinogen Normal mg/dL (Negative) Urine Leukocyte Esterase Trace /uL (Negative) Urine RBC <1 /hpf (0 - 4) Urine Microscopic WBC 1 /HPF (0-5) Urine Squamous Epithelial Cells Few /hpf (<5) Urine Bacteria None seen /hpf (None Seen) Urine Mucus Few (None Seen) Urine Glucose Normal mg/dL (Normal) Microbiology Microbiology Date/Time Source Procedure Growth Status 12/25/24 02:14 Nose MRSA Screen - Final Complete Labs and/or images reviewed: Labs reviewed by me, Image(s) reviewed by me Assessment/Plan Assessment/Plan Acute abdominal pain Hypercalcemia Elevated ALT measurement Intractable nausea and vomiting Abdominal pain likely due to moderate stool burden Slow transit constipation Hypercalcemia Calcified gallstones consult to GI pain control IV fluid GI to fully evaluate pt Plan discussed with: Patient Date of Service: Dec 26, 2024 Billing Provider: NIMCO AGUIRRE DO Common Visit Codes: [id number] INP/OBS CARE(HIGH) NIMCO AGUIRRE DO Dec 31, 2024 20:47
== END 2024-12-27 16:40 | disposition left against medical advice (07) | DRG 641 ==
LOC: ER 16:02 → OVERFLOW 23:49 → TELE-EAST 12-26 14:41
PROVIDERS: ADMIT Internal Medicine; ATTEND Internal Medicine
DX: E86.0 Dehydration (principal); E11.9 Type 2 diabetes mellitus without complications; I10 Essential (primary) hypertension; K59.01 Slow transit constipation; K80.20 Calculus of gallbladder without cholecystitis without obstruction; E78.5 Hyperlipidemia, unspecified; E83.52 Hypercalcemia; Z53.29 Procedure and treatment not carried out because of patient's decision for other reasons; R74.01 Elevation of levels of liver transaminase levels; Z83.3 Family history of diabetes mellitus; Z82.49 Family history of ischemic heart disease and other diseases of the circulatory system; Z79.4 Long term (current) use of insulin
CPT/HCPCS: 36415; 74176; 80053; 81001; 82962; 83690; 84484; 85025; 87081; 96361; 96374; 96375; 99291; G0378; J1815; J2405